=== PATIENT | female | born 1965 | race Caucasian/White ===

== ENCOUNTER → 2017-03-06 | Outpatient (CLI) | payer OTHER ==
--- NOTE | 2017-03-06 12:48 | Diagnostic Imaging Report ---
EXAM: Transabdominal and transvaginal pelvic ultrasound. INDICATION: New vaginal bleeding after years of no cycle. History of cervical cancer, status post radiation treatment. FINDINGS: The uterus is 5.8 x 4.7 x 3.6 cm. The endometrium is thickened and heterogenous with increased vascularity. Maximum thickness of the endometrium is 2.4 cm. The ovaries are obscured by bowel gas. IMPRESSION: Enlarged heterogenous endometrial mass with increased vascularity, probably related to endometrial carcinoma or cervical cancer recurrence. The findings were discussed with the Dr. Reynolds by Dr. Sanabria at the time of dictation Dictated by: Dictated on workstation # [id number]
== END ==
LOC: RAD 10:37
PROVIDERS: ATTEND Obstetrics & Gynecology
DX: N95.0 Postmenopausal bleeding (principal); N85.8 Other specified noninflammatory disorders of uterus
CPT/HCPCS: 76830; 76856

== ENCOUNTER → 2017-06-16 | Outpatient (CLI) | payer MEDICAID ==
[2017-06-16 10:23] LABS: BASOPHILS % (AUTO) 0 % (0-10); EOSINOPHILS # (AUTO) 0.1 10^3/uL (0.0-0.3); EOSINOPHILS % (AUTO) 1 % (0-10); LYMPHOCYTES # (AUTO) 2.7 X 10^3 (1.0-4.0); LYMPHOCYTES % (AUTO) 30 % (12-44); MEAN CORPUSCULAR HEMOGLOBIN 31 PG (25-34); MEAN CORPUSCULAR HGB CONC 34 G/DL (32-36); MEAN CORPUSCULAR VOLUME 91 FL (80-99); MEAN PLATELET VOLUME 10.4 FL (7.4-10.4); MONOCYTES # (AUTO) 0.4 X 10^3 (0.0-1.0); MONOCYTES % (AUTO) 4 % (0-12); NEUTROPHILS # (AUTO) 5.9 X 10^3 (1.8-7.8); NEUTROPHILS % (AUTO) 65 % (42-75); PLATELET COUNT 195 10^3/uL (130-400); RED BLOOD COUNT 4.39 10^6/uL (4.35-5.85); RED CELL DISTRIBUTION WIDTH 11.9 % (10.0-14.5); WHITE BLOOD COUNT 9.1 10^3/uL (4.3-11.0)
== END ==
LOC: LAB 10:02
DX: C53.9 Malignant neoplasm of cervix uteri, unspecified (principal)
CPT/HCPCS: 36415; 85025

== ENCOUNTER → 2017-06-23 | Outpatient (CLI) | payer MEDICAID ==
[2017-06-23 11:43] LABS: ALANINE AMINOTRANSFERASE 18 U/L (0-55); ALBUMIN 4.1 GM/DL (3.2-4.5); ANION GAP 9 MMOL/L (5-14); ASPARTATE AMINO TRANSFERASE 18 U/L (5-34); BILIRUBIN,TOTAL 0.3 MG/DL (0.1-1.0); BLOOD UREA NITROGEN 7 MG/DL (7-18); BUN/CREATININE RATIO 9; CALCIUM 9.5 MG/DL (8.5-10.1); CARBON DIOXIDE 22 MMOL/L (21-32); CHLORIDE 109 MMOL/L (98-107); CREATININE SERUM 0.74 MG/DL (0.60-1.30); GFR ESTIMATED > 60; GLUCOSE 84 MG/DL (70-105); MAGNESIUM 2.1 MG/DL (1.8-2.4); POTASSIUM 4.8 MMOL/L (3.6-5.0); SODIUM 140 MMOL/L (135-145); TOTAL PROTEIN 7.7 GM/DL (6.4-8.2)
== END ==
LOC: LAB 11:02
DX: C53.9 Malignant neoplasm of cervix uteri, unspecified (principal)
CPT/HCPCS: 36415; 80053; 83735

== ENCOUNTER 2017-09-11 05:39 | Outpatient (CLI) | payer MEDICAID ==
[~2017-09-11] VITALS: Ht 149.9 cm; Wt 54.0 kg
[2017-09-11] MEDS ORDERED: GABA600T2 PO (10:55)
[2017-09-11] MEDS ORDERED: VARE0.5T PO (10:55)
[2017-09-11] MEDS ORDERED: ONDA8TAB6 PO (10:55)
[2017-09-11] MEDS ORDERED: LISI40TA PO (10:55)
[2017-09-11] MEDS ORDERED: DICY20TA10 PO (10:55)
== END 2017-09-11 10:59 ==
LOC: PREOP 05:39
PROVIDERS: ATTEND Surgery
DX: Z01.818 Encounter for other preprocedural examination (principal); K62.5 Hemorrhage of anus and rectum; Z85.41 Personal history of malignant neoplasm of cervix uteri

== ENCOUNTER 2017-09-14 09:28 | Day surgery (SDC) | payer MEDICAID ==
[~2017-09-14] VITALS: Ht 149.9 cm; Wt 54.0 kg
[~2017-09-14 09:28] MED LIST: DICY20TA10 PO; GABA600T2 PO; LISI40TA PO; ONDA8TAB6 PO; VARE0.5T PO
[2017-09-14 09:32] VITALS: BP 134/76
[2017-09-14] MEDS ORDERED: LACTATED RINGERS 1,000 ML IV ONE (09:34)
--- NOTE | 2017-09-14 10:06 | Progress Note-Pre Operative ---
Pre-Operative Progress Note H&P Reviewed The H&P was reviewed, patient examined and no changes noted. Time Seen by Provider: 09:55 Date H&P Reviewed: Sep 14, 2017 Time H&P Reviewed: 09:58 Pre-Operative Diagnosis: Rectal bleed DENNIS MEADOWS DO Sep 14, 2017 10:06
[2017-09-14] MEDS ORDERED: LACTATED RINGERS 1,000 ML IV STA (10:25)
[2017-09-14] MEDS ORDERED: MIDAZOLAM 2 MG/2 ML (VERSED) VIAL ONE (10:39)
[2017-09-14] MEDS ORDERED: PROPOFOL INJECTION 50 ML IV ONE (10:39)
--- NOTE | 2017-09-14 11:27 | Progress Note-Post Operative ---
Post-Operative Progess Note Surgeon (s)/Dianetic Counselor (s) Surgeon DENNIS MEADOWS DO Dianetic Counselor: none Pre-Operative Diagnosis Rectal bleed Post-Operative Diagnosis Ulcerative Colitis Procedure & Operative Findings Date of Procedure 09/14/17 Procedure Performed/Findings Colonoscopy with hot bx Anesthesia Type IV Sedation by BILINGUAL TRAINER Estimated Blood Loss Estimated blood loss (mL): scant Specimens/Packing Specimens Removed bx from descending colon DENNIS MEADOWS DO Sep 14, 2017 11:27
[2017-09-14 11:35] VITALS: BP 140/85
--- NOTE | 2017-09-14 11:35 | Endoscopy Discharge Instruct ---
Endo Procedure/Findings Findings 1.: Colitis (ulcerative) 2.: Internal Hemorrhoids Discharge Instructions - Activity: You might feel a little sleepy until tomorrow. This is due to the medicine you received to relax you. Until tomorrow, you should: NOT drive a car, operate machinery or power tools. NOT drink any alcoholic beverages. NOT make any important decisions or sign importortant papers. Do not return to work until tomorrow, unless otherwise instructed. Resume previous activities tomorrow. Diet: Start by taking liquids. If you tolerate liquids, advance to solid food. Make appointment for one week. Notify Physician - If you experience excessive bleeding, unusual abdominal pain, fever, or chest pain, contact your doctor immediately. Follow-Up: - I have received and understand the above instructions and will call my doctor if I have any further questions. Patient Signature Date Nurse Signature Other (Relationship) DENNIS MEADOWS DO Sep 14, 2017 11:35
[2017-09-14 12:00] VITALS: BP 129/84
[2017-09-14 12:05] VITALS: BP 129/84
--- NOTE | 2017-09-14 18:45 | OPERATIVE REPORT ---
DATE OF SERVICE: PREOPERATIVE DIAGNOSIS: Rectal bleed. POSTOPERATIVE DIAGNOSES: 1. Ulcerative colitis. 2. Internal hemorrhoids. 3. Rectal bleed. PROCEDURE: Colonoscopy with hot biopsy. SURGEON: Robby Zavala D.O. CARD FOLDER: None. ANESTHESIA: IV sedation by MOBILE UI DESIGNER. SPECIMEN: Biopsy from the descending colon areas of ulceration. BLOOD LOSS: Scant. FLUIDS: Per anesthesia. POSTOPERATIVE CONDITION: Stable. INDICATION FOR PROCEDURE: The patient is a 52-year-old female who unfortunately was going through chemotherapy for cervical cancer and had some begins rectal bleeding and needed workup. FINDINGS: The patient had what looked like ulcerative colitis just in the descending colon starting from the splenic flexure down, but stopping above the sigmoid, rest of the colon looked okay. PROCEDURE NOTE: After informed consent was obtained, the patient was brought to the endoscopy suite, placed in the left lateral decubitus position. She was administered IV sedation and vitals monitored the entire time by the MOBILE UI DESIGNER. I inserted the scope and on the way I noted some ulcerations in the descending colon just prior to the splenic flexure. I did a couple of biopsies then continued pushed all the way to the cecum. I was able to get to the cecum. I took a picture of the appendiceal orifice and then able to get into the terminal ileum, took a picture and then slowly withdrew the scope insufflating to look circumferentially perez looking at the cecum up the ascending colon to the hepatic flexure, then down the transverse colon, the splenic flexure and then just after the splenic flexure, I started getting these ulcerations. There was not any active bleeding seen. Biopsies were taken of the some good tissue and I have tried to get a biopsy of the ulcer as well. Pictures were also taken. I then continued down and discontinued just about above the sigmoid and then down to the sigmoid into the rectum, retroflexed the rectal vault, saw some internal hemorrhoids, which also had a little bit of bleeding from them. The scope was then removed. The patient tolerated the procedure and she was recovered in the endoscopy suite. Job ID: [id number] DocumentID: [id number] Dictated Date: 09/14/2017 11:39:05 Textile Artist Date: 09/14/2017 18:45:20 Dictated By: ROBBY ZAVALA DO
== END 2017-09-14 12:05 | disposition home or self-care (01) ==
LOC: ENDO 09:28
PROVIDERS: ATTEND Surgery
DX: K51.90 Ulcerative colitis, unspecified, without complications (principal); K64.8 Other hemorrhoids; C53.8 Malignant neoplasm of overlapping sites of cervix uteri; Z92.21 Personal history of antineoplastic chemotherapy; F17.210 Nicotine dependence, cigarettes, uncomplicated; Z79.899 Other long term (current) drug therapy
CPT/HCPCS: 84703

== ENCOUNTER 2017-12-16 13:45 | Emergency (ER) | payer MEDICAID ==
[~2017-12-16] VITALS: Ht 147.3 cm; Wt 54.4 kg
[2017-12-16] MEDS ORDERED: NS IV 1000 ML 1,000 ML IV SCH (14:29)
[2017-12-16] MEDS ORDERED: FAMOTIDINE 20MG/2ML IV (PEPCID) IVP ONE (14:30)
[2017-12-16] MEDS ORDERED: ONDANSETRON 4 MG/2 ML (SDV) Z0FRAN IVP ONE (14:30)
[2017-12-16 14:46] LABS: BASOPHILS % (AUTO) 1 % (0-10); EOSINOPHILS % (AUTO) 1 % (0-10); HEMATOCRIT 34 % (35-52); HEMOGLOBIN 11.8 G/DL (11.5-16.0); LYMPHOCYTES # (AUTO) 2.8 X 10^3 (1.0-4.0); LYMPHOCYTES % (AUTO) 46 % (12-44); MEAN CORPUSCULAR HEMOGLOBIN 35 PG (25-34); MEAN CORPUSCULAR HGB CONC 35 G/DL (32-36); MEAN CORPUSCULAR VOLUME 100 FL (80-99); MEAN PLATELET VOLUME 10.4 FL (7.4-10.4); MONOCYTES # (AUTO) 0.2 X 10^3 (0.0-1.0); MONOCYTES % (AUTO) 3 % (0-12); NEUTROPHILS % (AUTO) 50 % (42-75); PLATELET COUNT 91 10^3/uL (130-400); RED BLOOD COUNT 3.42 10^6/uL (4.35-5.85); RED CELL DISTRIBUTION WIDTH 13.3 % (10.0-14.5); WHITE BLOOD COUNT 6.1 10^3/uL (4.3-11.0)
[2017-12-16 14:58] LABS: ALANINE AMINOTRANSFERASE 16 U/L (0-55); ALBUMIN 4.3 GM/DL (3.2-4.5); ALKALINE PHOSPHATASE 70 U/L (40-136); BILIRUBIN,TOTAL 0.9 MG/DL (0.1-1.0); BUN/CREATININE RATIO 19; CALCIUM 9.9 MG/DL (8.5-10.1); CARBON DIOXIDE 24 MMOL/L (21-32); CHLORIDE 99 MMOL/L (98-107); CREATININE SERUM 0.84 MG/DL (0.60-1.30); GFR ESTIMATED > 60; GLUCOSE 101 MG/DL (70-105); LIPASE 100 U/L (8-78); POTASSIUM 4.5 MMOL/L (3.6-5.0); SODIUM 131 MMOL/L (135-145); TOTAL PROTEIN 7.1 GM/DL (6.4-8.2)
[2017-12-16 15:05] LABS: CLARITY,URINE SLIGHTLY CLOUDY; COLOR,URINE YELLOW; GLUCOSE, URINE (UA) NEGATIVE (NEGATIVE); KETONES,URINE 1+ (NEGATIVE); LEUKOCYTE ESTERASE ,URINE 2+ (NEGATIVE); NITRITE,URINE NEGATIVE (NEGATIVE); PH,URINE 5 (5-9); PROTEIN,URINE 3+ (NEGATIVE); UROBILINOGEN,URINE 1 MG/DL (NORMAL)
[2017-12-16 15:39] LABS: BILIRUBIN,URINE 2+ (NEGATIVE)
[2017-12-16 15:41] LABS: BACTERIA,URINE FEW /HPF; SQUAMOUS EPITHELIAL CELL,UR 25-50 /HPF
[2017-12-16] MEDS ORDERED: cefTRIAXone INJECTION 1,000 MG in NS (IVPB) 100 ML IV ONE (16:00)
[2017-12-16] MEDS ORDERED: ENALAPRILAT 2.5 MG/2 ML (VASOTEC) VIAL IV ONE (16:15)
[2017-12-16] MEDS ORDERED: lisINopril 20 MG (PRINIVIL) TABLET PO ONE ×2 (16:15)
[2017-12-16] MEDS ORDERED: CEPH-507 PO (17:11)
[2017-12-16] MEDS ORDERED: LISI-552 PO (17:11)
[2017-12-16] MEDS ORDERED: ONDA4TAB8 SL (17:11)
--- NOTE | 2017-12-16 17:12 | ED General ---
General Chief Complaint: Cardiac/General Problems Stated Complaint: HIGH BP Nursing Triage Note: pt reports had chemo on and has had bouts of nausea and vomiting since. pt also hypertension recently with dumont. pt took her bp at home at 1200 and it read 185/97. Nursing Sepsis Screen: No Definite Risk Source of Information: Patient Exam Limitations: No Limitations History of Present Illness Date Seen by Provider: Dec 16, 2017 Time Seen by Provider: 14:21 Initial Comments This 52-year-old woman presents to the emergency room with complaints of nausea , vomiting, and hypertension. She took her metoprolol last night and again this morning but she has been vomiting so she does not know if she kept it down. She is currently undergoing chemotherapy for cervical cancer. Her last treatment was on December 10. She has some Zofran at home but did not take it this morning. She notes that her blood pressure medication was recently changed to metoprolol after she ran out of lisinopril. Her primary care provider is Viki Maya at [facility]. Her oncologist is Dr. Tubbs. Allergies and Home Medications Allergies Coded Allergies: No Known Drug Allergies (Unverified , 09/11/17) Home Medications Cephalexin 500 Mg Capsule, 500 MG PO QID Prescribed by: ANGE LUIS on 12/16/171710 Dicyclomine HCl 20 Mg Tablet, 20 MG PO QID PRN for SPASMS, (Reported) Gabapentin 600 Mg Tablet, 600 MG PO BID, (Reported) Lisinopril 40 Mg Tablet, 40 MG PO BID, (Reported) Lisinopril 20 Mg Tablet, 20 MG PO DAILY Prescribed by: ANGE LUIS on 12/16/171710 Ondansetron 4 Mg Tab.rapdis, 4 MG SL Q4H PRN for NAUSEA/VOMITING-1ST LINE Prescribed by: ANGE LUIS on 12/16/171710 Ondansetron HCl 8 Mg Tablet, 8 MG PO PRN, (Reported) Varenicline Tartrate 0.5 Mg Tablet, 0.5 MG PO DAILY, (Reported) Patient Home Medication List Home Medication List Reviewed: Yes Constitutional: no symptoms reported EENTM: no symptoms reported Respiratory: no symptoms reported Cardiovascular: see HPI Gastrointestinal: see HPI Genitourinary: no symptoms reported Musculoskeletal: no symptoms reported Skin: no symptoms reported Psychiatric/Neurological: No Symptoms Reported Hematologic/Lymphatic: No Symptoms Reported Immunological/Allergic: see HPI Past [id number] Hx Patient Social History Alcohol Use: Rarely Uses Recreational Drug Use: No Smoking Status: Former Smoker Type Used: Cigarettes Former Smoker, Quit: Dec 14, 2017 Recent Foreign Travel: No Contact w/Someone Who Travel: No Recent Infectious Disease Expo: No Recent Hopitalizations: No Physical Abuse: No Sexual Abuse: No Mistreated: No Fear: No Seasonal Allergies Seasonal Allergies: No Surgeries History of Surgeries: Yes (PORT ) Surgeries: Tubal Ligation Respiratory History of Respiratory Disorde: No Cardiovascular History of Cardiac Disorders: Yes Cardiac Disorders: Hypertension Neurological History of Neurological Disord: Yes Neurological Disorders: Neuropathy Reproductive System : No Hx Reproductive Disorders: No Sexually Transmitted Disease: No HIV/AIDS: No Female Reproductive Disorders: Endometriosis Genitourinary History of Genitourinary Disor: No Gastrointestinal History of Gastrointestinal Di: Yes (RECTAL BLEEDING) Musculoskeletal History of Musculoskeletal Dis: No Endocrine History of Endocrine Disorders: No HEENT Loss of Vision: Bilateral Hearing Impairment: Denies Cancer History of Cancer: Yes Cancer: Cervical Did You Recieve Any Treatments: Yes Type of Tx Receive: Chemotherapy Psychosocial History of Psychiatric Problem: No Suicide Risk Score: 0 Integumentary History of Skin or Integumenta: No Blood Transfusions History of Blood Disorders: No Adverse Reaction to a Blood Tr: No (N/A) Physical Exam Vital Signs Vital Signs - First Documented 12/16/17 13:53 Temp 97.7 Pulse 71 Resp 14 B/P (MAP) 161/116 (131) Pulse Ox 99 O2 Delivery Room Air Capillary Refill : Less Than 3 Seconds General Appearance: No Apparent Distress, WD/WN HEENT: PERRL/EOMI, Normal ENT Inspection, Pharynx Normal Neck: Normal Inspection Respiratory: Lungs Clear, Normal Breath Sounds, No Accessory Muscle Use, No Respiratory Distress Cardiovascular: Regular Rate, Rhythm, No Edema, No Murmur Gastrointestinal: Normal Bowel Sounds, Soft, Tenderness (Epigastrium) Extremity: Normal Inspection, No Pedal Edema Neurologic/Psychiatric: Alert, Oriented x3, No Motor/Sensory Deficits, Normal Mood/Affect, data processing systems consultant II-XII Norm as Tested Skin: Normal Color, Warm/Dry Progress/Results/Core Measures Suspected Sepsis Recent Fever Within 48 Hours: No Infection Criteria Present: None New/Unexplained Altered Menta: No Sepsis Screen: No Definite Risk Sepsis Diagnosis: SIRS Temperature:97.7 Pulse: 71 Respiratory Rate: 14 Laboratory Tests 12/16/17 14:07: White Blood Count 6.1 Blood Pressure 161 /116 Mean: 131 Laboratory Tests 12/16/17 14:07: Creatinine 0.84, Platelet Count 91L, Total Bilirubin 0.9 Results/Orders Lab Results Laboratory Tests Test 12/16/17 14:07 12/16/17 14:55 Range/Units White Blood Count 6.1 4.3-11.0 10^3/uL Red Blood Count 3.42 L 4.35-5.85 10^6/uL Hemoglobin 11.8 11.5-16.0 G/DL Hematocrit 34 L 35-52 % Mean Corpuscular Volume 100 H 80-99 FL Mean Corpuscular Hemoglobin 35 H 25-34 PG Mean Corpuscular Hemoglobin Concent 35 32-36 G/DL Red Cell Distribution Width 13.3 10.0-14.5 % Platelet Count 91 L 130-400 10^3/uL Mean Platelet Volume 10.4 7.4-10.4 FL Neutrophils (%) (Auto) 50 42-75 % Lymphocytes (%) (Auto) 46 H 12-44 % Monocytes (%) (Auto) 3 0-12 % Eosinophils (%) (Auto) 1 0-10 % Basophils (%) (Auto) 1 0-10 % Neutrophils # (Auto) 3.0 1.8-7.8 X 10^3 Lymphocytes # (Auto) 2.8 1.0-4.0 X 10^3 Monocytes # (Auto) 0.2 0.0-1.0 X 10^3 Eosinophils # (Auto) 0.0 0.0-0.3 10^3/uL Basophils # (Auto) 0.0 0.0-0.1 10^3/uL Sodium Level 131 L 135-145 MMOL/L Potassium Level 4.5 3.6-5.0 MMOL/L Chloride Level 99 98-107 MMOL/L Carbon Dioxide Level 24 21-32 MMOL/L Anion Gap 8 5-14 MMOL/L Blood Urea Nitrogen 16 7-18 MG/DL Creatinine 0.84 0.60-1.30 MG/DL Estimat Glomerular Filtration Rate > 60 BUN/Creatinine Ratio 19 Glucose Level 101 70-105 MG/DL Calcium Level 9.9 8.5-10.1 MG/DL Total Bilirubin 0.9 0.1-1.0 MG/DL Aspartate Amino Transf (AST/SGOT) 21 5-34 U/L Alanine Aminotransferase (ALT/SGPT) 16 0-55 U/L Alkaline Phosphatase 70 40-136 U/L Total Protein 7.1 6.4-8.2 GM/DL Albumin 4.3 3.2-4.5 GM/DL Lipase 100 H 8-78 U/L Urine Color YELLOW Urine Clarity SLIGHTLY CLOUDY Urine pH 5 5-9 Urine Specific [place] 1.020 1.016-1.022 Urine Protein 3+ H NEGATIVE Urine Glucose (UA) NEGATIVE NEGATIVE Urine Ketones 1+ H NEGATIVE Urine Nitrite NEGATIVE NEGATIVE Urine Bilirubin 2+ H NEGATIVE Urine Urobilinogen 1 NORMAL MG/DL Urine Leukocyte Esterase 2+ H NEGATIVE Urine RBC (Auto) NEGATIVE NEGATIVE Urine RBC NONE /HPF Urine WBC 5-10 H /HPF Urine Squamous Epithelial Cells 25-50 H /HPF Urine Crystals NONE /LPF Urine Bacteria FEW H /HPF Urine Casts NONE /LPF Urine Mucus LARGE H /LPF Urine Culture Indicated YES My Orders Orders - ANGE SNOWDEN MD Cbc With Automated Diff (12/16/17 14:29) Comprehensive Metabolic Panel (12/16/17 14:29) Lipase (12/16/17 14:29) Ua Culture If Indicated (12/16/17 14:29) Saline Lock/Iv-Start (12/16/17 14:29) Ns Iv 1000 Ml (Sodium Chloride 0.9%) (12/16/17 14:29) Ondansetron Injection (Zofran Injectio (12/16/17 14:30) Famotidine Injection (Pepcid Injection) (12/16/17 14:30) Urine Culture (12/16/17 14:55) Ceftriaxone Injection (Rocephin Injectio (12/16/17 16:00) Enalaprilat Injection (Vasotec Injection (12/16/17 16:15) Lisinopril Tablet (Zestril Tablet) (12/16/17 16:15) Lisinopril Tablet (Zestril Tablet) (12/16/17 16:15) Medications Given in ED Current Medications Medications Dose Ordered Sig/Andie Route Start Time Stop Time Status Last Admin Dose Admin Ceftriaxone Sodium 1000 mg/ Sodium Chloride 100 ml @ 200 mls/hr ONCE ONCE IV 12/16/17 16:00 12/16/17 16:29 DC 12/16/17 16:02 200 MLS/HR Enalaprilat 0.625 mg ONCE ONCE IV 12/16/17 16:15 12/16/17 16:16 DC 12/16/17 16:24 0.625 MG Famotidine 20 mg ONCE ONCE IVP 12/16/17 14:30 12/16/17 14:32 DC 12/16/17 14:52 20 MG Lisinopril 20 mg ONCE ONCE PO 12/16/17 16:15 12/16/17 16:20 DC 12/16/17 16:24 20 MG Ondansetron HCl 8 mg ONCE ONCE IVP 12/16/17 14:30 12/16/17 14:32 DC 12/16/17 14:52 8 MG Vital Signs/I&O Vital Sign - Last 12Hours 12/16/17 13:53 Temp 97.7 Pulse 71 Resp 14 B/P (MAP) 161/116 (131) Pulse Ox 99 O2 Delivery Room Air Capillary Refill : Less Than 3 Seconds Blood Pressure Mean: 131 Progress Note : Progress Note Patient was found have urinary tract infection and was treated with Rocephin. Nausea and epigastric pain were treated with Zofran and Pepcid. Hypertensive urgency was treated with Vasotec by IV route followed by lisinopril 20 mg orally. Patient was a little hyponatremic and was therefore given a liter of normal saline. Lisinopril will likely treat her hypertension better than the metoprolol. I have added lisinopril back to her hypertensive treatment regimen with 20 mg daily. First dose was administered in the ER. Blood pressure did improve to 160/103 by the time of dismissal. Departure Impression Impression: Primary Impression: Hypertensive urgency Additional Impressions: Acute pancreatitis Qualified Codes: K85.90 - Acute pancreatitis without necrosis or infection, unspecified Nausea and vomiting Qualified Codes: R11.2 - Nausea with vomiting, unspecified Urinary tract infection Qualified Codes: N39.0 - Urinary tract infection, site not specified Hyponatremia Disposition: 01 HOME, SELF-CARE Condition: Improved Departure-Patient Inst. Decision time for Depature: 17:08 Referrals: [facility] (PCP) Primary Care Physician JERNIGAN,NANDO R PUBLIC HEALTH PHYSICIAN (Family) Primary Care Physician Patient Instructions: Pericarditis, Adult (DC), Urinary Tract Infection, Adult (DC) Add. Discharge Instructions: Drink plenty of clear liquids. Consume strictly clear liquid diet for the remainder of the day. Tomorrow, if you are feeling improved gradually advance your diet with small quantities of bland food as tolerated. Complete your antibiotic as prescribed. Follow-up on the urine culture results Thursday afternoon by contacting the clinic. I suggest stopping by the [facility] clinic tomorrow to have your blood pressure checked. Call prior to going to the clinic to make arrangements. Also schedule a follow-up appointment with your primary care provider for a medication review. Start your antibiotics and lisinopril as prescribed tomorrow morning. You may continue taking lisinopril as previously prescribed. Return to care if symptoms are worsening. All discharge instructions reviewed with patient and/or family. Voiced understanding. Scripts Ondansetron (Zofran Odt) 4 Mg Tab.rapdis 4 MG SL Q4H Y for NAUSEA/VOMITING-1ST LINE, #10 TAB Prov: ANGE SNOWDEN MD 12/16/17 Cephalexin (Keflex) 500 Mg Capsule 500 MG PO QID, #28 CAP Prov: ANGE SNOWDEN MD 12/16/17 Lisinopril (Lisinopril) 20 Mg Tablet 20 MG PO DAILY, #30 TAB Prov: ANGE SNOWDEN MD 12/16/17 Copy Copies To 1: PAULO CHEN JOSHUA T MD Dec 16, 2017 17:12
[2017-12-16 17:28] VITALS: BP 150/97
== END 2017-12-16 17:28 | disposition home or self-care (01) ==
LOC: EDUNIT# 13:45 → ER 13:46
DX: I16.0 Hypertensive urgency (principal); K85.90 Acute pancreatitis without necrosis or infection, unspecified; N39.0 Urinary tract infection, site not specified; E87.1 Hypo-osmolality and hyponatremia; R11.2 Nausea with vomiting, unspecified; C53.9 Malignant neoplasm of cervix uteri, unspecified; I10 Essential (primary) hypertension; G62.9 Polyneuropathy, unspecified; Z98.51 Tubal ligation status; Z87.891 Personal history of nicotine dependence
CPT/HCPCS: 36415; 80053; 81000; 83690; 85025; 87088; 96361; 96365; 96375

== ENCOUNTER → 2018-02-09 | Outpatient (CLI) | payer MEDICAID ==
[~2018-02-09] VITALS: Ht 147.3 cm; Wt 54.4 kg
[~2018-02-09] MED LIST changes: +CATHETER FLUSH 10 ML SYR IV ONE; +CEPH-507 PO; +LISI-552 PO; +ONDA4TAB8 SL
[2018-02-09 12:35] VITALS: BP 145/93
== END ==
LOC: SDC 12:30
PROVIDERS: ATTEND Obstetrics & Gynecology
DX: Z45.2 Encounter for adjustment and management of vascular access device (principal); C53.9 Malignant neoplasm of cervix uteri, unspecified; N94.89 Other specified conditions associated with female genital organs and menstrual cycle; I10 Essential (primary) hypertension; F17.200 Nicotine dependence, unspecified, uncomplicated
CPT/HCPCS: 96523